=== PATIENT | female | born 2000 | race Caucasian/White ===

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

== ENCOUNTER 2020-01-06 06:55 | Emergency (ER) | payer BC ==
[2020-01-06] MEDS ORDERED: Sodium Chloride 0.9% 10 ML Syringe FLUSH PRN (07:08)
[2020-01-06 07:48] LABS: CHLORIDE,CL 103 mmol/L (98-107); SODIUM,NA 140 mmol/L (136-145)
--- NOTE | 2020-01-06 08:09 | EDM.PDOC ---
ED HPI GENERAL MEDICAL PROBLEM - General Chief Complaint: Cardiovascular Problem Stated Complaint: Rapid Heartbeat, shortness of breath Time Seen by Provider: 01/06/20 07:15 Source of Information: Reports: Patient, Family History Limitations: Reports: No Limitations - History of Present Illness INITIAL COMMENTS - FREE TEXT/NARRATIVE: Pt with increased HR this AM Some SOB No chest pain No fever No cough Has had this in past but not as severe Has had recent increase in caffeine No new medications or supplements Onset: Gradual Duration: Day(s):, Intermittent Location: Reports: Chest Severity: Moderate - Related Data Allergies Allergy/AdvReac Type Severity Reaction Status Date / Time No Known Allergies Allergy Verified 01/06/20 07:25 Home Meds: Home Meds FLUoxetine HCl [Fluoxetine HCl] 20 mg PO DAILY 01/06/20 [History] hydrOXYzine pamoate [Hydroxyzine Pamoate] 25 mg PO Q6H PRN 01/06/20 [History] norgestimate-ethinyl estradioL [Tri-Estarylla Tablet] 1 tab PO DAILY 01/06/20 [History] Past Medical History - Past Health History Medical/Surgical History: Denies Medical/Surgical History HEENT History: Reports: Other (See Below) Other HEENT History: Wears glasses Cardiovascular History: Reports: None, Other (See Below) Other Cardiovascular History: Hx. 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 with no history of significant depression Endocrine/Metabolic History: Reports: None Hematologic History: Reports: None Immunologic History: Reports: None Oncologic (Cancer) History: Reports: None Dermatologic History: Reports: Other (See Below) Other Dermatologic History: TAKES MEDICATIONS FOR ACNE - Infectious Disease History Infectious Disease History: Reports: None - Past Surgical History Head Surgeries/Procedures: Reports: None HEENT Surgical History: Reports: Adenoidectomy, Oral Surgery, Tonsillectomy, Other (See Below) Cardiovascular Surgical History: Reports: None GI Surgical History: Reports: None Female Surgical History: Reports: None Endocrine Surgical History: Reports: None Oncologic Surgical History: Reports: None - Past Imaging History Past Imaging History: Reports: CAT Scan Social & Family History - Family History Neurological: Reports: Migraines, Other (See Below) Other Neurological Family History: History of possible migraines versus chronic headaches in mother and maternal grandmother - Tobacco Use Smoking Status *Q: Never Smoker Second Hand Smoke Exposure: No - Caffeine Use Caffeine Use: Reports: Soda Caffeine Use Comment: 1-2 CAFFEINE DRINKS PER WINK - Recreational Drug Use Recreational Drug Use: No - Living Situation & Occupation Living situation: Reports: with Family Occupation: Student ED ROS GENERAL - Review of Systems Review Of Systems: See Below HEENT: Reports: No Symptoms Respiratory: Reports: No Symptoms Cardiovascular: Reports: Palpitations GI/Abdominal: Reports: No Symptoms ED EXAM, GENERAL - Physical Exam Exam: See Below Exam Limited By: No Limitations General Appearance: Alert, No Apparent Distress Neck: Supple Respiratory/Chest: Lungs Clear Cardiovascular: Regular Rate, Rhythm Extremities: No Pedal Edema Neurological: Alert, Oriented Psychiatric: Normal Affect, Normal Mood EKG INTERPRETATION Rhythm: NSR Course - Vital Signs Last Recorded V/S: Last Vital Signs Temp 98.3 F 01/06/20 07:31 Pulse 72 01/06/20 07:45 Resp 18 01/06/20 07:45 BP 121/67 01/06/20 07:45 Pulse Ox 100 01/06/20 07:45 - Orders/Labs/Meds Orders: Active Orders 24 hr Category Date Time Status EKG Documentation Completion [RC] ASDIRECTED Care 01/06/20 07:08 Active Sodium Chloride 0.9% [Saline Flush] Med 01/06/20 07:08 Active 10 ml FLUSH ASDIRECTED PRN Saline Lock Insert [OM.PC] Routine Oth 01/06/20 07:08 Ordered EKG 12 Lead [EK] Stat Ther 01/06/20 07:08 Ordered Medication Orders Sodium Chloride (Saline Flush) 10 ml FLUSH ASDIRECTED PRN PRN Reason: Keep Vein Open Labs: Laboratory Tests 01/06/20 01/06/20 Range/Units 07:15 07:15 WBC 8.9 (4.0-10.2) K/uL RBC 4.49 (3.77-5.09) M/uL Hgb 13.9 (11.7-15.5) g/dL Hct 40.5 (34.0-46.0) % MCV 90.2 (84.0-98.0) fL MCH 31.0 (28.2-33.3) pg MCHC 34.3 (31.7-36.0) g/dL RDW 11.7 (11.2-14.1) % Plt Count 283 (150-350) K/uL Neut % (Auto) 53.9 (45.0-80.0) % Lymph % (Auto) 34.9 (10.0-50.0) % [place] % (Auto) 8.7 (2.0-14.0) % Eos % (Auto) 2.4 (0.0-5.0) % Baso % (Auto) 0.1 (0.0-2.0) % Neut # (Auto) 4.79 (1.40-7.00) K/uL Lymph # (Auto) 3.10 (0.50-3.50) K/uL [place] # (Auto) 0.77 (0.00-1.00) K/uL Eos # (Auto) 0.21 (0.00-0.50) K/uL Baso # (Auto) 0.01 (0.00-0.20) K/uL Sodium 140 (136-145) mmol/L Potassium 3.1 L (3.5-5.1) mmol/L Chloride 103 (98-107) mmol/L Carbon Dioxide 24.5 (21.0-32.0) mmol/L BUN 11 (7-18) mg/dL Creatinine 0.79 (0.51-1.17) mg/dL Est Cr Clr Drug Dosing 98.91 mL/min Estimated GFR (MDRD) > 60 mL/min Glucose 101 (74-106) mg/dL Calcium 8.9 (8.5-10.1) mg/dL Total Bilirubin 0.3 (0.2-1.0) mg/dL AST 17 (15-37) U/L ALT 17 (12-78) U/L Alkaline Phosphatase 74 (46-116) IU/L Troponin I 0.000 (0.000-0.056) ng/mL Total Protein 7.6 (6.4-8.2) g/dL Albumin 3.9 (3.4-5.0) g/dL TSH, Ultra Sensitive 3.119 (0.358-3.740) mIU/mL Meds: Medications Generic Name Dose Route Start Last Admin Trade Name Freq PRN Reason Stop Dose Admin Sodium Chloride 10 ml 01/06/20 07:08 Saline Flush FLUSH ASDIRECTED PRN Keep Vein Open - Re-Assessments/Exams Free Text/Narrative Re-Assessment/Exam: 01/06/20 08:06 Pt stable in ER EKG and monitor with NSR in 80's and 90's See lab Pt to follow up in clinic Departure - Departure Time of Disposition: 08:15 Disposition: Home, Self-Care 01 Clinical Impression: Tachycardia Instructions: Sinus Tachycardia Referrals: Cheryl Rodriguez, RETAIL SALES SPECIALIST [Primary Care Provider] - Additional Instructions: Follow up in clinic To ER if worse Avoid stimulants Sepsis Event Note (ED) - Evaluation Sepsis Screening Result: No Definite Risk - Focused Exam Vital Signs: Vital Signs Temp Pulse Resp BP Pulse Ox 01/06/20 07:45 72 18 121/67 100 01/06/20 07:31 98.3 F 112 H 18 112/47 L 98 01/06/20 07:08 98.3 F 124 H 20 130/69 100 - My Orders Last 24 Hours: My Active Orders 01/06/20 07:08 EKG Documentation Completion [RC] ASDIRECTED Sodium Chloride 0.9% [Saline Flush] 10 ml FLUSH ASDIRECTED PRN Saline Lock Insert [OM.PC] Routine EKG 12 Lead [EK] Stat - Assessment/Plan Last 24 Hours: My Active Orders 01/06/20 07:08 EKG Documentation Completion [RC] ASDIRECTED Sodium Chloride 0.9% [Saline Flush] 10 ml FLUSH ASDIRECTED PRN Saline Lock Insert [OM.PC] Routine EKG 12 Lead [EK] Stat
[2020-01-06 09:45] VITALS: BP 113/67; PULSE 70
== END 2020-01-06 08:25 | disposition home or self-care (01) ==
LOC: LL.ED 07:05
DX: R00.0 Tachycardia, unspecified (principal); F41.9 Anxiety disorder, unspecified; Z79.899 Other long term (current) drug therapy
CPT/HCPCS: 36415; 80053; 84443; 84484; 85025; 93005; 99283; 99285-25